=== PATIENT | female | born 1965 | race African-American/Black ===

== ENCOUNTER 2017-03-17 17:27 | Emergency (ER) | payer OTHER, MEDICARE ==
[~2017-03-17] VITALS: Ht 175.3 cm; Wt 73.0 kg
[~2017-03-17 17:27] MED LIST: AMLO5TAB4 PO; ASPI-1159 PO; DIAZ10TA PO; FOLI-43 PO; GABA-290 PO; HYDR-519 PO; HYDR25TA PO; METH2.5T PO; OXYC-159 PO; PRED5TAB PO; QUIN20TA30 PO; QUIN5TAB PO; [UNRECOGNIZED DRUG - CODE] PO; cyclobenzaprine PO
[2017-03-17 19:03] LABS: BASOPHILS % 1.3 % (0.0-2.0); EOSINOPHILS % 3.6 % (0.0-5.0); HEMATOCRIT. 38.1 % (36.0-48.0); HEMOGLOBIN. 12.7 g/dL (12.0-16.0); LYMPHOCYTES % 42.4 % (20.0-50.0); MEAN CORPUSCULAR HEMOGLOBIN 28.1 pg (28.0-32.0); MEAN CORPUSCULAR VOLUME 84.4 fL (81.0-99.0); MEAN PLATELET VOLUME 8.9 fl (7.4-10.4); MONOCYTES % 7.4 % (2.0-8.0); NEUTROPHILS % 45.3 % (40.0-76.0); PLATELET 365 x1000/uL (130-400); RED BLOOD CELL COUNT 4.51 mill/uL (4.2-5.4)
[2017-03-17 19:10] LABS: PROTHROMBIN TIME 10.1 sec
[2017-03-17 19:13] LABS: CARBON DIOXIDE 27 mEq/L (21-32); CHLORIDE 105 mEq/L (98-107)
[2017-03-17 19:17] LABS: TROPONIN I < 0.02 ng/mL (0.00-0.04)
[2017-03-17] MEDS ORDERED: HYDROCODONE/ACETAMINOPHEN 5/325MG TABLET PO ONE (20:15)
[2017-03-17 23:07] VITALS: BP 160/93
== END 2017-03-17 23:08 | disposition home or self-care (01) ==
LOC: ER 20:02
DX: R07.89 Other chest pain (principal); R20.0 Anesthesia of skin; I10 Essential (primary) hypertension; I25.2 Old myocardial infarction; Z86.73 Personal history of transient ischemic attack (TIA), and cerebral infarction without residual deficits; Z79.82 Long term (current) use of aspirin; Z88.0 Allergy status to penicillin; Z98.890 Other specified postprocedural states; Z90.49 Acquired absence of other specified parts of digestive tract; Z90.710 Acquired absence of both cervix and uterus; Z79.899 Other long term (current) drug therapy
CPT/HCPCS: 36415; 70450; 71010; 80053; 84484; 85025; 85610; 93005; 99285

== ENCOUNTER 2017-05-07 19:17 | Observation (INO) | payer MEDICARE ==
[~2017-05-07] VITALS: Ht 175.3 cm; Wt 59.9 kg
[2017-05-07 21:41] LABS: BASOPHILS % 1.4 % (0.0-2.0); EOSINOPHILS % 0.7 % (0.0-5.0); HEMATOCRIT. 40.8 % (36.0-48.0); HEMOGLOBIN. 13.6 g/dL (12.0-16.0); LYMPHOCYTES % 32.9 % (20.0-50.0); MEAN CORPUSCULAR HEMOGLOBIN 27.4 pg (28.0-32.0); MEAN CORPUSCULAR VOLUME 82.5 fL (81.0-99.0); MEAN PLATELET VOLUME 8.2 fl (7.4-10.4); MONOCYTES % 5.3 % (2.0-8.0); NEUTROPHILS % 59.7 % (40.0-76.0); PLATELET 565 x1000/uL (130-400); RED BLOOD CELL COUNT 4.95 mill/uL (4.2-5.4); RED CELL DISTRIBUTION WIDTH 15.1 % (11.6-14.6)
[2017-05-07 21:46] LABS: PROTHROMBIN TIME 10.7 sec
[2017-05-07 21:47] LABS: CARBON DIOXIDE 25 mEq/L (21-32); CHLORIDE 103 mEq/L (98-107)
[2017-05-07 21:55] LABS: TROPONIN I < 0.02 ng/mL (0.00-0.04)
[2017-05-07] MEDS ORDERED: MORPHINE SULFATE 4 MG/ML CPJ (NOT FOR IM USE) IV ONE (22:30)
[2017-05-07] MEDS ORDERED: ASPIRIN 325MG EC TABLET PO ONE (23:30)
[2017-05-08] MEDS ORDERED: KETOROLAC 30MG/ML VIAL IV ONE (00:15)
[2017-05-08] MEDS ORDERED: DIPHENHYDRAMINE 50MG/ML VIAL IV ONE (00:15)
[2017-05-08] MEDS ORDERED: AMLODIPINE 10MG TABLET PO ONE (00:45)
[2017-05-08] MEDS ORDERED: CLONIDINE 0.1MG TABLET PO PRN (02:45)
[2017-05-08] MEDS: MORPHINE SULFATE 4 MG/ML CPJ (NOT FOR IM USE) IV PRN ×3 (02:59→18:28)
[2017-05-08 03:33] VITALS: BP 151/89
[2017-05-08] MEDS ORDERED: GABA800T PO (03:43)
[2017-05-08] MEDS ORDERED: CYCL10TA7 PO (03:47)
[2017-05-08 03:58] VITALS: BP 151/89
[2017-05-08] MEDS ORDERED: ACETAMINOPHEN 325MG TABLET PO PRN (04:15)
[2017-05-08] MEDS ORDERED: TEMAZEPAM 15MG CAPSULE PO NR (04:15)
[2017-05-08 07:50] LABS: T4 FREE 1.05 ng/dL (0.76-1.46)
[2017-05-08 08:00] VITALS: BP 122/80
[2017-05-08] MEDS ORDERED: LACTOSE FREE FOOD PO SCH (09:00)
[2017-05-08] MEDS: AMLODIPINE 5MG TABLET PO SCH (09:41)
[2017-05-08] MEDS: GABAPENTIN 400MG CAPSULE PO SCH ×2 (09:42→17:00)
[2017-05-08] MEDS: FOLIC ACID 1MG TABLET PO SCH (09:42)
[2017-05-08] MEDS: CYCLOBENZAPRINE 10MG TABLET PO SCH (09:42)
[2017-05-08] MEDS: LISINOPRIL 10MG TABLET PO SCH (09:42)
[2017-05-08] MEDS: ENOXAPARIN 40MG/0.4ML SYR SUBCUT SCH (09:48)
[2017-05-08] MEDS: ASPIRIN 81MG EC TABLET PO SCH (09:49)
[2017-05-08] MEDS: HYDROCHLOROTHIAZIDE 25MG TABLET PO SCH (09:51)
[2017-05-08 12:29] VITALS: BP 131/86
[2017-05-08] MEDS ORDERED: LORAZEPAM 2MG/ML CPJ IV NR (13:15)
[2017-05-08 16:00] VITALS: BP 115/80
[2017-05-08 20:00] VITALS: BP 114/71
[2017-05-08] MEDS: TEMAZEPAM 15MG CAPSULE PO PRN (21:36)
[2017-05-09] VITALS: BP 102/60
[2017-05-09] MEDS ORDERED: LORAZEPAM 2MG/ML CPJ IM NR (01:00)
[2017-05-09 04:00] VITALS: BP 105/68
[2017-05-09 08:00] VITALS: BP 132/86
[2017-05-09] MEDS: MORPHINE SULFATE 4 MG/ML CPJ (NOT FOR IM USE) IV PRN ×4 (08:07→21:10)
[2017-05-09] MEDS: LISINOPRIL 10MG TABLET PO SCH (08:10)
[2017-05-09] MEDS: CYCLOBENZAPRINE 10MG TABLET PO SCH (08:10)
[2017-05-09] MEDS: GABAPENTIN 400MG CAPSULE PO SCH ×2 (08:10→16:51)
[2017-05-09] MEDS: FOLIC ACID 1MG TABLET PO SCH (08:10)
[2017-05-09] MEDS: ASPIRIN 81MG EC TABLET PO SCH (08:10)
[2017-05-09] MEDS: AMLODIPINE 5MG TABLET PO SCH (08:10)
[2017-05-09] MEDS: ENOXAPARIN 40MG/0.4ML SYR SUBCUT SCH (08:11)
[2017-05-09] MEDS: HYDROCHLOROTHIAZIDE 25MG TABLET PO SCH (08:11)
[2017-05-09] MEDS: LORAZEPAM 2MG/ML CPJ IV PRN ×2 (11:23→21:19)
[2017-05-09 12:00] VITALS: BP 134/88
[2017-05-09 16:00] VITALS: BP 101/77
[2017-05-09 20:00] VITALS: BP 114/75
[2017-05-10] VITALS: BP 117/66
[2017-05-10] MEDS: MORPHINE SULFATE 4 MG/ML CPJ (NOT FOR IM USE) IV PRN ×2 (01:06→08:40)
[2017-05-10] MEDS: TEMAZEPAM 15MG CAPSULE PO PRN (02:56)
[2017-05-10 04:00] VITALS: BP 110/75
[2017-05-10 08:00] VITALS: BP 138/68
[2017-05-10] MEDS: CYCLOBENZAPRINE 10MG TABLET PO SCH (08:29)
[2017-05-10] MEDS: ASPIRIN 81MG EC TABLET PO SCH (08:29)
[2017-05-10] MEDS: FOLIC ACID 1MG TABLET PO SCH (08:29)
[2017-05-10] MEDS: HYDROCHLOROTHIAZIDE 25MG TABLET PO SCH (08:29)
[2017-05-10] MEDS: GABAPENTIN 400MG CAPSULE PO SCH (08:29)
[2017-05-10] MEDS: AMLODIPINE 5MG TABLET PO SCH (08:30)
[2017-05-10] MEDS: LISINOPRIL 10MG TABLET PO SCH (08:30)
[2017-05-10] MEDS: ENOXAPARIN 40MG/0.4ML SYR SUBCUT SCH (08:46)
[2017-05-10] MEDS: LORAZEPAM 2MG/ML CPJ IV PRN (09:48)
[2017-05-10 12:00] VITALS: BP 127/66
[2017-05-10 12:33] VITALS: BP 128/72
[2017-05-14] MEDS ORDERED: METHOTREXATE SODIUM 2 . 5MG TABLET PO SCH (09:00)
== END 2017-05-10 13:00 | disposition home or self-care (01) ==
LOC: ER 21:46 → INTOOBSV 23:07 → 7WST 23:07 → EDBEDREQ 05-08 00:11 → ENRESERV 05-08 02:35
PROVIDERS: ADMIT Internal Medicine; ATTEND Internal Medicine
DX: R53.1 Weakness (principal); I10 Essential (primary) hypertension; M06.9 Rheumatoid arthritis, unspecified; G47.00 Insomnia, unspecified; G62.9 Polyneuropathy, unspecified; F17.200 Nicotine dependence, unspecified, uncomplicated; M48.02 Spinal stenosis, cervical region; Z90.49 Acquired absence of other specified parts of digestive tract
CPT/HCPCS: 36415; 70450; 70551; 71010; 72125; 80053; 80061; 83880; 84439; 84443; 84484; 85025; 85610; 93005; 93306; 93880; 96372; 96374; 96375; 96376; 97163; 97167; 97530; 99285; C1893; G0378; J1200; J1650; J1885; J2060; J2270

== ENCOUNTER 2017-07-02 20:42 | Observation (INO) | payer MEDICARE ==
[~2017-07-02] VITALS: Ht 177.8 cm; Wt 73.5 kg
[~2017-07-02 20:42] MED LIST changes: +CYCL10TA7 PO; -DIAZ10TA PO; -GABA-290 PO; +GABA800T PO; -HYDR-519 PO; -PRED5TAB PO; -QUIN20TA30 PO; -cyclobenzaprine PO
[2017-07-02] MEDS ORDERED: MORPHINE SULFATE 4 MG/ML CPJ (NOT FOR IM USE) IV ONE (21:45)
[2017-07-02 22:12] LABS: CHLORIDE 101 mEq/L (98-107)
[2017-07-02 22:13] LABS: BASOPHILS % 1.2 % (0.0-2.0); EOSINOPHILS % 1.4 % (0.0-5.0); HEMATOCRIT. 40.7 % (36.0-48.0); HEMOGLOBIN. 13.4 g/dL (12.0-16.0); LYMPHOCYTES % 44.1 % (20.0-50.0); MEAN CORPUSCULAR VOLUME 82.3 fL (81.0-99.0); MEAN PLATELET VOLUME 8.7 fl (7.4-10.4); MONOCYTES % 7.2 % (2.0-8.0); NEUTROPHILS % 46.1 % (40.0-76.0); PLATELET 403 x1000/uL (130-400); PROTHROMBIN TIME 10.7 sec (9.4-11.6); RED BLOOD CELL COUNT 4.95 mill/uL (4.2-5.4); RED CELL DISTRIBUTION WIDTH 17.3 % (11.6-14.6)
[2017-07-02 22:22] LABS: CARBON DIOXIDE 26 mEq/L (21-32); TROPONIN I < 0.02 ng/mL (0.00-0.04)
[2017-07-02] MEDS ORDERED: ASPIRIN 325MG EC TABLET PO ONE (23:15)
[2017-07-03] MEDS ORDERED: NITROGLYCERIN OINT 1GM/INCH UDPKT TD ONE (00:30)
[2017-07-03] MEDS ORDERED: MORPHINE SULFATE 4 MG/ML CPJ (NOT FOR IM USE) IV ONE (05:21)
[2017-07-03] MEDS ORDERED: MORPHINE SULFATE 4 MG/ML CPJ (NOT FOR IM USE) IV PRN (05:45)
[2017-07-03 08:00] VITALS: BP 118/70
[2017-07-03 08:27] VITALS: BP 118/71
[2017-07-03] MEDS ORDERED: MORP15TA67 PO (08:27)
[2017-07-03 12:00] VITALS: BP 131/88
[2017-07-03] MEDS ORDERED: CLONIDINE 0.1MG TABLET PO PRN (12:45)
[2017-07-03] MEDS ORDERED: IPRATROPIUM/ALBUTEROL 0.5-3(2.5)MG/3ML NEB INH PRN (12:45)
[2017-07-03] MEDS ORDERED: POTASSIUM CHLORIDE 20MEQ TABLET SR PO NR (12:45)
[2017-07-03] MEDS ORDERED: ONDANSETRON HCL 4MG/2ML VIAL IV PRN (12:45)
[2017-07-03] MEDS ORDERED: ACETAMINOPHEN 325MG TABLET PO PRN (12:45)
[2017-07-03] MEDS: HYDROCHLOROTHIAZIDE 25MG TABLET PO SCH (12:50)
[2017-07-03] MEDS: FOLIC ACID 1MG TABLET PO SCH (12:50)
[2017-07-03] MEDS: MORPHINE SULFATE 4 MG/ML CPJ (NOT FOR IM USE) IV PRN ×2 (12:50→20:16)
[2017-07-03] MEDS: PREDNISONE 20MG TABLET PO SCH (12:51)
[2017-07-03] MEDS: AMLODIPINE 5MG TABLET PO SCH (12:51)
[2017-07-03] MEDS: ASPIRIN 81MG EC TABLET PO SCH (12:51)
[2017-07-03] MEDS ORDERED: METHOTREXATE SODIUM 2 . 5MG TABLET PO SCH (14:00)
[2017-07-03] MEDS ORDERED: ENOXAPARIN 40MG/0.4ML SYR SUBCUT SCH (14:00)
[2017-07-03 15:52] LABS: CREATINE KINASE 52 IU/L (26-192); TROPONIN I < 0.02 ng/mL (0.00-0.04)
[2017-07-03 16:00] VITALS: BP 143/90
[2017-07-03 16:12] LABS: *AMPHETAMINES SCREEN URINE NEGATIVE (NEGATIVE); *BARBITURATES SCREEN URINE NEGATIVE (NEGATIVE); *BENZODIAZEPINES SCREEN URINE NEGATIVE (NEGATIVE); *COCAINE SCREEN URINE NEGATIVE (NEGATIVE); CANNABINOID URINE SCREEN NEGATIVE (NEGATIVE); METHADONE URINE SCREEN NEGATIVE (NEGATIVE); OPIATES URINE SCREEN PRESUMTIVE POSITIVE (NEGATIVE); PHENCYCLIDINE URINE SCREEN NEGATIVE (NEGATIVE)
[2017-07-03 20:00] VITALS: BP 152/97
[2017-07-03] MEDS ORDERED: TEMAZEPAM 15MG CAPSULE PO PRN (22:30)
[2017-07-03 23:34] LABS: CREATINE KINASE 54 IU/L (26-192); TROPONIN I < 0.02 ng/mL (0.00-0.04)
[2017-07-04] VITALS: BP 146/90
[2017-07-04] MEDS: MORPHINE SULFATE 4 MG/ML CPJ (NOT FOR IM USE) IV PRN ×3 (01:02→09:03)
[2017-07-04 04:00] VITALS: BP 140/88
[2017-07-04 07:25] LABS: BASOPHILS % 0.8 % (0.0-2.0); EOSINOPHILS % 1.8 % (0.0-5.0); HEMATOCRIT. 38.4 % (36.0-48.0); HEMOGLOBIN. 12.6 g/dL (12.0-16.0); LYMPHOCYTES % 50.5 % (20.0-50.0); MEAN CORPUSCULAR HEMOGLOBIN 26.8 pg (28.0-32.0); MEAN CORPUSCULAR VOLUME 81.6 fL (81.0-99.0); MEAN PLATELET VOLUME 8.8 fl (7.4-10.4); MONOCYTES % 8.5 % (2.0-8.0); NEUTROPHILS % 38.4 % (40.0-76.0); PLATELET 383 x1000/uL (130-400); RED BLOOD CELL COUNT 4.71 mill/uL (4.2-5.4); RED CELL DISTRIBUTION WIDTH 17.5 % (11.6-14.6)
[2017-07-04 08:32] VITALS: BP 149/93
[2017-07-04 08:41] LABS: CARBON DIOXIDE 26 mEq/L (21-32); CHLORIDE 104 mEq/L (98-107); HDL CHOLESTEROL 38 mg/dL (40-59); LDL CHOLESTEROL 88 mg/dL (5-100)
[2017-07-04] MEDS: HYDROCHLOROTHIAZIDE 25MG TABLET PO SCH (09:02)
[2017-07-04] MEDS: FOLIC ACID 1MG TABLET PO SCH (09:02)
[2017-07-04] MEDS: PREDNISONE 20MG TABLET PO SCH (09:02)
[2017-07-04] MEDS: AMLODIPINE 5MG TABLET PO SCH (09:02)
[2017-07-04] MEDS: ASPIRIN 81MG EC TABLET PO SCH (09:03)
[2017-07-04 12:00] VITALS: BP 132/81
[2017-07-04 13:13] VITALS: BP 132/81
[2017-07-09] MEDS ORDERED: METHOTREXATE SODIUM 2 . 5MG TABLET PO SCH (09:00)
== END 2017-07-04 13:40 | disposition home or self-care (01) ==
LOC: ER 21:56 → INTOOBSV 07-03 00:01 → 5WST 07-03 00:01 → ENRESERV 07-03 05:54
PROVIDERS: ADMIT Internal Medicine; ATTEND Internal Medicine
DX: R07.89 Other chest pain (principal); I42.9 Cardiomyopathy, unspecified; I50.22 Chronic systolic (congestive) heart failure; I11.0 Hypertensive heart disease with heart failure; E87.6 Hypokalemia; M06.9 Rheumatoid arthritis, unspecified; Z87.891 Personal history of nicotine dependence; Z90.710 Acquired absence of both cervix and uterus
CPT/HCPCS: 36415; 70450; 71010; 80053; 80061; 80305; 82550; 83880; 84484; 85025; 85610; 93005; 96372; 96374; 96375; 96376; 97163; 99285; G0378; J1650; J2270; J7512; J8610

== ENCOUNTER 2017-11-27 09:24 | Emergency (ER) | payer MEDICARE ==
[~2017-11-27] VITALS: Ht 175.3 cm; Wt 72.0 kg
[~2017-11-27 09:24] MED LIST changes: -CYCL10TA7 PO; +MORP15TA67 PO
[2017-11-27] MEDS ORDERED: ONDANSETRON HCL 4MG/2ML VIAL IV ONE (12:00)
[2017-11-27] MEDS ORDERED: MORPHINE SULFATE 1MG/ML 1ML INJ SYR(NEO) IV ONE (12:00)
[2017-11-27 12:15] LABS: BASOPHILS % 0.8 % (0.0-2.0); EOSINOPHILS % 0.8 % (0.0-5.0); HEMATOCRIT. 40.7 % (36.0-48.0); HEMOGLOBIN. 13.4 g/dL (12.0-16.0); LYMPHOCYTES % 26.8 % (20.0-50.0); MEAN CORPUSCULAR HEMOGLOBIN 27.7 pg (28.0-32.0); MEAN CORPUSCULAR VOLUME 83.8 fL (81.0-99.0); MEAN PLATELET VOLUME 8.2 fl (7.4-10.4); NEUTROPHILS % 66.6 % (40.0-76.0); PLATELET 443 x1000/uL (130-400); RED BLOOD CELL COUNT 4.85 mill/uL (4.2-5.4); RED CELL DISTRIBUTION WIDTH 15.8 % (11.6-14.6)
[2017-11-27 12:20] LABS: PROTHROMBIN TIME 10.5 sec (9.4-11.6)
[2017-11-27 12:29] LABS: CHLORIDE 106 mEq/L (98-107); TROPONIN I < 0.02 ng/mL (0.00-0.04)
[2017-11-27] MEDS ORDERED: MORPHINE SULFATE 2 MG/ML CPJ (NOT FOR IM USE) IV SCH (12:45)
[2017-11-27] MEDS ORDERED: KETOROLAC 30MG/ML VIAL IV ONE (13:45)
[2017-11-27 14:50] VITALS: BP 162/102
== END 2017-11-27 15:00 | disposition home or self-care (01) ==
LOC: ER 09:40
DX: S16.1XXA Strain of muscle, fascia and tendon at neck level, initial encounter (principal); R51 Headache; M19.90 Unspecified osteoarthritis, unspecified site; Z87.891 Personal history of nicotine dependence; Z88.0 Allergy status to penicillin; Z79.82 Long term (current) use of aspirin; Z86.73 Personal history of transient ischemic attack (TIA), and cerebral infarction without residual deficits; X58.XXXA Exposure to other specified factors, initial encounter; Y93.89 Activity, other specified; Y92.89 Other specified places as the place of occurrence of the external cause; Y99.8 Other external cause status
CPT/HCPCS: 36415; 70450; 71045; 80048; 83880; 84484; 85025; 85610; 93005; 96374; 96375; 99285; J1885; J2270; J2405